=== PATIENT | male | born 1950 | race Caucasian/White ===

== ENCOUNTER 2021-06-26 21:41 | Emergency (ER) | payer OTHER ==
[~2021-06-26] VITALS: Ht 177.8 cm; Wt 81.6 kg
[2021-06-26 23:06] VITALS: BP 121/75
== END 2021-06-26 23:09 | disposition home or self-care (01) ==
LOC: EDH 21:41
DX: T16.1XXA Foreign body in right ear, initial encounter (principal); E78.00 Pure hypercholesterolemia, unspecified; X58.XXXA Exposure to other specified factors, initial encounter; Y93.89 Activity, other specified; Y92.89 Other specified places as the place of occurrence of the external cause; Y99.8 Other external cause status
CPT/HCPCS: 69200

== ENCOUNTER 2022-05-17 13:23 | Emergency (ER) | payer OTHER ==
[~2022-05-17] VITALS: Ht 177.8 cm; Wt 81.6 kg
[2022-05-17] MEDS ORDERED: ACETAMINOPHEN 500 MG TABLET PO ONE (15:30)
[2022-05-17] MEDS ORDERED: IBUP-2070 PO (16:25)
[2022-05-17 16:40] VITALS: BP 128/74
== END 2022-05-17 16:41 | disposition home or self-care (01) ==
LOC: EDH 13:23
DX: S86.912A Strain of unspecified muscle(s) and tendon(s) at lower leg level, left leg, initial encounter (principal); E78.00 Pure hypercholesterolemia, unspecified; Z79.899 Other long term (current) drug therapy; W18.39XA Other fall on same level, initial encounter; Y93.89 Activity, other specified; Y92.89 Other specified places as the place of occurrence of the external cause; Y99.8 Other external cause status
CPT/HCPCS: 73562